=== PATIENT | female | born 1945 | race Caucasian/White ===

== ENCOUNTER 2020-01-02 16:55 | Emergency (ER) | payer MEDICARE, OTHER ==
[~2020-01-02] VITALS: Ht 157.5 cm; Wt 61.2 kg
[2020-01-02 16:58] VITALS: BP_SYST 134
[2020-01-02] MEDS ORDERED: ONDANSETRON 4 MG ODT TAB PO ONE (17:30)
[2020-01-02 17:36] VITALS: BP_SYST 134
[2020-01-02] MEDS ORDERED: ONDANSETRON 4 MG ODT TAB ONE (17:42)
== END 2020-01-02 17:36 | disposition home or self-care (01) ==
LOC: SED 16:55
DX: N39.0 Urinary tract infection, site not specified (principal); I10 Essential (primary) hypertension
CPT/HCPCS: 81002; 99283; Q0162